=== PATIENT | female | born 1990 | race Caucasian/White ===

== ENCOUNTER 2016-07-10 08:24 | Emergency (ER) | payer OTHER ==
[~2016-07-10] VITALS: Ht 167.6 cm; Wt 78.5 kg
--- NOTE | 2016-07-10 08:24 | NUR ---
PT BIBA TO BED 5 AT THIS TIME.
[2016-07-10 08:25] VITALS: BP 133/101
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
--- NOTE | 2016-07-10 08:40 | NUR ---
Patient being evaluated by physician at bedside.
[2016-07-10] MEDS ORDERED: IBUPROFEN 800 MG TAB PO ONE (08:50)
--- NOTE | 2016-07-10 08:55 | NUR ---
X-Ray at bedside.
--- NOTE | 2016-07-10 09:20 | NUR ---
PT AMBULATE TO RESTROOM WITH EVEN AND STEADY GAIT.
[2016-07-10 09:35] VITALS: BP 121/72
--- NOTE | 2016-07-10 09:35 | NUR ---
Patient discharged with v/s stable. Written and verbal after care instructions given and explained. Patient alert, oriented and verbalized understanding of instructions. Ambulatory with steady gait WITH FATHER. All questions addressed prior to discharge. ID band removed. Patient advised to follow up with PMD. Rx of SOMA AND IBUPROFEN given. Patient educated on indication of medication including possible reaction and side effects. Opportunity to ask questions provided and answered.
== END 2016-07-10 09:35 | disposition home or self-care (01) ==
LOC: MED 08:24
DX: S16.1XXA Strain of muscle, fascia and tendon at neck level, initial encounter (principal); S29.011A Strain of muscle and tendon of front wall of thorax, initial encounter; R03.0 Elevated blood-pressure reading, without diagnosis of hypertension; Z88.0 Allergy status to penicillin; V89.2XXA Person injured in unspecified motor-vehicle accident, traffic, initial encounter; Y93.89 Activity, other specified; Y92.411 Interstate highway as the place of occurrence of the external cause; Y99.8 Other external cause status